=== PATIENT | female | born 1970 | race Caucasian/White ===

== ENCOUNTER 2017-01-08 13:28 | Emergency (ER) | payer BC ==
[~2017-01-08] VITALS: Ht 170.2 cm; Wt 99.0 kg
[2017-01-08 14:46] LABS: EOSINOPHIL COUNT 0.1 K/uL (0-0.3); HEMATOCRIT 42.8 % (36.0-46.0); IMMATURE GRANULOCYTE (%) 0.6 % (0.0-0.7); IMMATURE GRANULOCYTE COUNT 0.1 K/uL; INSTRUMENT ABS NEUTROPHIL CT 7.8 K/uL; LYMPHOCYTE COUNT 2.4 K/uL (1.0-2.8); MCH 28.6 PG (29.0-34.0); MCHC 34.1 G/DL (30.0-36.0); MCV 83.8 FL (83-99); MEAN PLAT.VOLUME 9.8 uM^3 (9.5-12.4); MONOCYTE (%) 3.5 % (3-12); MONOCYTE COUNT 0.4 K/uL (0-0.8); NEUTROPHIL COUNT 7.8 K/uL (1.8-6.4); PLATELET COUNT 224 K/uL (156-360); RBC DIS.WIDTH-CV 13.6 % (11.8-14.6); RBC DIS.WIDTH-SD 41.8 % (39-53); RED BLOOD COUNT 5.11 M/uL (3.80-5.20); WHITE BLOOD COUNT 10.8 K/uL (4.1-10.2)
[2017-01-08 14:50] LABS: CHLORIDE 104 mEq/L (99-109); SODIUM 142 mEq/L (136-147)
[2017-01-08 14:52] LABS: GLUCOSE 230 mg/dL (70-99)
[2017-01-08 14:53] LABS: ANION GAP 15 MEQ/L (2-14)
[2017-01-08 14:56] LABS: GFR ESTIMATE (CALCULATED) > 59 mL/min/
[2017-01-08 14:57] LABS: UREA NITROGEN (BUN) 12 mg/dL (9-23)
[2017-01-08 15:02] LABS: TROP-I INTERPRETATION NEGATIVE; TROPONIN-I < 0.01 ng/mL (0.0-0.30)
[2017-01-08 17:04] LABS: TROP-I INTERPRETATION NEGATIVE; TROPONIN-I < 0.01 ng/mL (0.0-0.30)
[2017-01-08 17:28] VITALS: BP 116/86
== END 2017-01-08 17:29 | disposition home or self-care (01) ==
LOC: EME 13:28
PROVIDERS: Emergency Medicine
DX: R07.89 Other chest pain (principal); R51 Headache; R42 Dizziness and giddiness; F17.200 Nicotine dependence, unspecified, uncomplicated
CPT/HCPCS: 71010; 80048; 84484; 85025; 93005; 99281; 99284; J1885; J2405; J7030